=== PATIENT | female | born 1940 | race Caucasian/White ===

== ENCOUNTER 2016-07-30 19:40 | Emergency (ER) | payer MEDICARE ==
[~2016-07-30 19:40] MED LIST: ACCUPRIL; BP MED; CYMBALTA; EVISTA60 M1 PO; HYDROCODON-ACE1 EAC2 PO; ORUDIS75 M1 DOB; TYLOX 5-500 CA1 EACH PO; VITAMIN D250000 UNIT PO; [UNRECOGNIZED DRUG - OTHER]
== END 2016-07-30 20:31 | disposition home or self-care (01) ==
LOC: CFTX 19:40
DX: M54.42 Lumbago with sciatica, left side (principal); M54.41 Lumbago with sciatica, right side; I10 Essential (primary) hypertension; Z76.0 Encounter for issue of repeat prescription; Z90.89 Acquired absence of other organs; Z88.0 Allergy status to penicillin
CPT/HCPCS: 99283